=== PATIENT | female | born 1995 | race Caucasian/White ===

== ENCOUNTER 2019-12-13 11:50 | Emergency (ER) | payer OTHER ==
[~2019-12-13] VITALS: Ht 157.5 cm; Wt 52.2 kg
== END 2019-12-13 14:15 | disposition home or self-care (01) ==
LOC: ER 11:50
DX: S60.812A Abrasion of left wrist, initial encounter (principal); S60.811A Abrasion of right wrist, initial encounter; W54.0XXA Bitten by dog, initial encounter; Y93.89 Activity, other specified; Y92.69 Other specified industrial and construction area as the place of occurrence of the external cause; Y99.8 Other external cause status

== ENCOUNTER 2020-09-16 22:23 | Emergency (ER) | payer OTHER ==
[~2020-09-16] VITALS: Ht 157.5 cm; Wt 49.9 kg
[2020-09-17] MEDS ORDERED: SILVADENE20 GM TOP (04:55)
== END 2020-09-17 05:03 | disposition home or self-care (01) ==
LOC: ER 22:23
DX: L55.0 Sunburn of first degree (principal)

== ENCOUNTER → 2020-09-16 | Emergency (ER) | payer OTHER ==
[~2020-09-16] VITALS: Ht 157.5 cm; Wt 49.4 kg
[~2020-09-16] MED LIST: SILVADENE20 GM TOP
== END | disposition home or self-care (01) ==
LOC: ER 12:17
DX: L55.0 Sunburn of first degree (principal)